=== PATIENT | female | born 1990 | race Caucasian/White ===

== ENCOUNTER 2018-12-25 22:35 | Emergency (ER) | payer SELFPAY | END 2018-12-25 23:32 | disposition home or self-care (01) | LOC: FTE 22:35 | DX: S31.41XA Laceration without foreign body of vagina and vulva, initial encounter (principal); X58.XXXA Exposure to other specified factors, initial encounter; Y92.9 Unspecified place or not applicable | CPT/HCPCS: 99284 ==